=== PATIENT | female | born 1945 | race African-American/Black ===

== ENCOUNTER 2021-12-06 12:25 | Emergency (ER) | payer MEDICARE ==
[~2021-12-06] VITALS: Ht 162.6 cm; Wt 136.4 kg
[~2021-12-06 12:25] MED LIST: CITA40TA6 PO; GABA600T7 PO; HYDR12.58 PO; METH-572 PO; OXYC15TA3 PO; PRAV40TA2 PO
[2021-12-06 13:27] LABS: BASO # 0.1 x10^3/uL (0.0-0.2); BASO % 1 % (0-3); EOS # 0.2 x10^3/uL (0.0-0.7); EOS % 2 % (0-3); HEMATOCRIT 42.1 % (36.0-47.0); LYMPH # 2.6 x10^3/uL (1.0-4.8); LYMPH % 36 % (24-48); MEAN CORPUSCULAR HEMOGLOBIN 32 pg (25-35); MEAN CORPUSCULAR HGB CONC 33 g/dL (31-37); MEAN CORPUSCULAR VOLUME 95 fL (79-100); MONO # 0.8 x10^3/uL (0.0-1.1); MONO % 11 % (0-9); NEUT # 3.7 x10^3/uL (1.8-7.7); NEUT % 50 % (31-73); PLATELET COUNT 225 x10^3/uL (140-400); RED BLOOD COUNT 4.45 x10^6/uL (3.50-5.40); RED CELL DISTRIBUTION WIDTH 14.6 % (11.5-14.5); WHITE BLOOD COUNT 7.3 x10^3/uL (4.0-11.0)
[2021-12-06 13:30] LABS: BILIRUBIN,URINE NEGATIVE (NEG); CLARITY,URINE CLEAR; COLOR,URINE YELLOW; NITRITE,URINE NEGATIVE (NEG); PROTEIN,URINE NEGATIVE (NEG-TRACE); UROBILINOGEN,URINE 0.2 mg/dL (0.2 mg/dL)
[2021-12-06 13:40] LABS: BACTERIA,URINE FEW /HPF (0-FEW); RBC,URINE 0 /HPF (0-2); WBC,URINE OCC /HPF (0-4)
--- NOTE | 2021-12-06 13:41 | RAD ---
EXAM: Chest, single view. HISTORY: Hypertension. COMPARISON: None. FINDINGS: A frontal view of the chest is obtained. There is no infiltrate, pleural effusion or pneumo thorax. The heart is normal in size. IMPRESSION: No acute pulmonary finding. Electronically signed by: Kaila Garcia MD (12/06/2021 1:38 PM) [id number]
[2021-12-06 13:48] LABS: ANION GAP 10 (6-14); BLOOD UREA NITROGEN 16 mg/dL (7-20); BUN/CREATININE RATIO 15 (6-20); CALCIUM 9.6 mg/dL (8.5-10.1); CARBON DIOXIDE 30 mmol/L (21-32); CHLORIDE 103 mmol/L (98-107); CREATININE 1.1 mg/dL (0.6-1.0); GFR 58.7; GLUCOSE 119 mg/dL (70-99); POTASSIUM 3.3 mmol/L (3.5-5.1); SODIUM 143 mmol/L (136-145)
[2021-12-06 13:51] LABS: ALBUMIN 3.1 g/dL (3.4-5.0); ALBUMIN/GLOBULIN RATIO 0.7 (1.0-1.7); ALK PHOS 52 U/L (46-116); ALT (SGPT) 9 U/L (14-59); AST (SGOT) < 5 U/L (15-37); TOTAL BILIRUBIN 0.3 mg/dL (0.2-1.0); TOTAL PROTEIN 7.5 g/dL (6.4-8.2)
--- NOTE | 2021-12-06 13:55 | PHYS DOC ---
Past Medical History Past Medical History: Anxiety, High Cholesterol, Hypertension, Other Additional Past Medical Histor: neuropathy Past Surgical History: Cholecystectomy, Hysterectomy, Tubal ligation, Other Additional Past Surgical Histo: "Bursa" removed Smoking Status: Current Every Day Smoker Alcohol Use: None Drug Use: None General Adult EDM: Chief Complaint: HYPERTENSION HPI: HPI: Patient is a 76 year old female who presents with high blood pressure reading at home, "trembling face," headache and dizziness. Patient checked her blood pressure this morning and reports that her systolic blood pressure was 202. She is unsure what the diastolic was. She called her primary care provider who advised that she present to the emergency department. Recently, patient's entire household was quarantined because multiple people in the home tested positive for COVID-19. Patient consistently tested negatively, however had headache and dizziness during this time. She reports that the symptoms have not resolved. Patient denies focal weakness, paresthesias, facial droop, chest pain, palpitations, shortness of breath, cough. Review of Systems: Review of Systems: Constitutional: Denies fever, chills or generalized weakness Eyes: Denies change in visual acuity, visual field deficits or discharge HENT: Denies ear pain, nasal congestion or sore throat Respiratory: See HPI Cardiovascular: See HPI GI: Denies abdominal pain, nausea, vomiting, bloody stools or diarrhea : Denies dysuria or hematuria Musculoskeletal: Denies back pain or joint pain Integument: Denies rash or other skin lesion Neurologic: See HPI Heart Score: C/O Chest Pain: No Allergies: Allergies: Allergies Coded Allergies Type Severity Reaction Last Updated Verified Penicillins Allergy Intermediate 02/23/14 Yes Physical Exam: PE: Constitutional: Obese, well-groomed, no acute distress, non-toxic appearance. HENT: Normocephalic, atraumatic, bilateral external ears normal, nose normal. Eyes: PERRLA, EOMI, conjunctiva normal, no discharge. Neck: Normal range of motion, no stridor. Cardiovascular: Heart rate regular rhythm, no murmur. Lungs & Thorax: Bilateral breath sounds clear to auscultation. Skin: Warm, dry, no erythema, no rash. Extremities: No tenderness, no cyanosis, no clubbing, ROM intact, no pitting edema. Neurologic: Alert and oriented x4, no focal deficits noted. Current Patient Data: Labs: Laboratory Tests Test 12/06/21 12:50 12/06/21 12:55 White Blood Count 7.3 x10^3/uL (4.0-11.0) Red Blood Count 4.45 x10^6/uL (3.50-5.40) Hemoglobin 14.0 g/dL (12.0-15.5) Hematocrit 42.1 % (36.0-47.0) Mean Corpuscular Volume 95 fL (79-100) Mean Corpuscular Hemoglobin 32 pg (25-35) Mean Corpuscular Hemoglobin Concent 33 g/dL (31-37) Red Cell Distribution Width 14.6 % (11.5-14.5) Platelet Count 225 x10^3/uL (140-400) Neutrophils (%) (Auto) 50 % (31-73) Lymphocytes (%) (Auto) 36 % (24-48) Monocytes (%) (Auto) 11 % (0-9) Eosinophils (%) (Auto) 2 % (0-3) Basophils (%) (Auto) 1 % (0-3) Neutrophils # (Auto) 3.7 x10^3/uL (1.8-7.7) Lymphocytes # (Auto) 2.6 x10^3/uL (1.0-4.8) Monocytes # (Auto) 0.8 x10^3/uL (0.0-1.1) Eosinophils # (Auto) 0.2 x10^3/uL (0.0-0.7) Basophils # (Auto) 0.1 x10^3/uL (0.0-0.2) Sodium Level 143 mmol/L (136-145) Potassium Level 3.3 mmol/L (3.5-5.1) Chloride Level 103 mmol/L (98-107) Carbon Dioxide Level 30 mmol/L (21-32) Anion Gap 10 (6-14) Blood Urea Nitrogen 16 mg/dL (7-20) Creatinine 1.1 mg/dL (0.6-1.0) Estimated GFR (Cockcroft-Gault) 58.7 BUN/Creatinine Ratio 15 (6-20) Glucose Level 119 mg/dL (70-99) Calcium Level 9.6 mg/dL (8.5-10.1) Magnesium Level 2.2 mg/dL (1.8-2.4) Total Bilirubin 0.3 mg/dL (0.2-1.0) Aspartate Amino Transf (AST/SGOT) < 5 U/L (15-37) Alanine Aminotransferase (ALT/SGPT) 9 U/L (14-59) Alkaline Phosphatase 52 U/L (46-116) Troponin I High Sensitivity 5 ng/L (4-50) Total Protein 7.5 g/dL (6.4-8.2) Albumin 3.1 g/dL (3.4-5.0) Albumin/Globulin Ratio 0.7 (1.0-1.7) Urine Collection Type Unknown Urine Color Yellow Urine Clarity Clear Urine pH 6.0 (<5.0-8.0) Urine Specific [place] 1.015 (1.000-1.030) Urine Protein Negative mg/dL (NEG-TRACE) Urine Glucose (UA) Negative mg/dL (NEG) Urine Ketones (Stick) Negative mg/dL (NEG) Urine Blood Negative (NEG) Urine Nitrite Negative (NEG) Urine Bilirubin Negative (NEG) Urine Urobilinogen Dipstick 0.2 mg/dL (0.2 mg/dL) Urine Leukocyte Esterase Negative (NEG) Urine RBC 0 /HPF (0-2) Urine WBC Occ /HPF (0-4) Urine Squamous Epithelial Cells Mod /LPF Urine Bacteria Few /HPF (0-FEW) 12/06/21 12:50 Vital Signs: Vital Signs Date Time Temp Pulse Resp B/P (MAP) Pulse Ox O2 Delivery O2 Flow Rate FiO2 12/06/21 16:04 97.8 59 16 149/72 (97) 96 Room Air 97.8 12/06/21 14:54 59 19 134/66 (88) 96 Room Air 12/06/21 13:40 62 20 160/71 (100) 95 Room Air 12/06/21 12:30 97.8 72 18 152/66 (94) 98 Room Air 97.8 EKG: EKG: EKG Interpreted by Dr. Shanks at 1234: Regular rate and rhythm 76 bpm with no ectopic beats. QT 370 ms/QTc 420 ms. No STEMI. Radiology/Procedures: Radiology/Procedures: PROCEDURE: CT HEAD WO CONTRAST CT HEAD INDICATION: Dizziness, hypertension COMPARISON: None Available. Exposure: One or more of the following individualized dose reduction techniques were utilized for this examination: 1. Automated exposure control 2. Adjustment of the mA and/or kV according to patient size 3. Use of iterative reconstruction technique TECHNIQUE: 5 mm contiguous axial images were obtained from the skull base to the vertex in both bone and soft tissue algorithm. FINDINGS: No abnormal attenuation within the brain parenchyma. No evidence of acute intracranial hemorrhage. No extra-axial fluid collections. No mass effect or midline shift. Ventricular size is appropriate. Basal cisterns are patent. No fractures identified.Lee-white differentiation is preserved.Globes and orbits are within normal limits. Paranasal sinuses and mastoid air cells are clear. IMPRESSION: No acute intracranial findings. Electronically signed by: Leopoldo Galvan MD (12/06/2021 2:20 PM) [id number] PROCEDURE: CHEST AP ONLY EXAM: Chest, single view. HISTORY: Hypertension. COMPARISON: None. FINDINGS: A frontal view of the chest is obtained. There is no infiltrate, pleural effusion or pneumothorax. The heart is normal in size. IMPRESSION: No acute pulmonary finding. Electronically signed by: Kaila Garcia MD (12/06/2021 1:38 PM) [id number] Course & Med Decision Making: Course & Med Decision Making Pertinent Labs and Imaging studies reviewed. (See chart for details) Patient is a 76-year-old female who recently completed quarantine for Covid exposure in the home who presents with headache, dizziness and an elevated blood pressure reading this morning. Patient called her primary care doctor's office, advised she visited the ER. Work-up today will include labs, urinalysis, chest x-ray, CT head. Work-up today does not reveal any evidence of endorgan damage. Patient's headache is improved, as is her blood pressure. Patient is advised to follow with her PCP if her headaches become more frequent. All questions were answered and return precautions were provided. Patient and her family member at bedside understand and are agreeable to discharge plan. Dragon Disclaimer: Latisha Disclaimer: This electronic medical record was generated, in whole or in part, using a voice recognition dictation system. Departure Departure Impression: Primary Impression: Headache Qualified Codes: R51.9 - Headache, unspecified Additional Impression: Elevated systolic blood pressure reading with diagnosis of hypertension Disposition: HOME / SELF CARE / HOMELESS Condition: STABLE Referrals: NADEEM FREED MD (PCP) Patient Instructions: General Headache Without Cause, [id number], Managing Your High Blood Pressure, Potassium Content of Foods Additional Instructions: EMERGENCY DEPARTMENT GENERAL DISCHARGE INSTRUCTIONS Thank you for coming to [facility] Emergency Department (ED) today and trusting us with you care. We trust that you had a positive experience in our Emergency Department. If you wish to speak to the department management, you may call the director at . Your evaluation in the emergency department today after your elevated blood pressure reading at home did not reveal any acute abnormalities. Your potassium was slightly low, so please be sure to include potassium rich foods in your diet going forward. YOUR FOLLOW UP INSTRUCTIONS ARE FOLLOWS: 1. Follow up with your primary care doctor. If you do not have a primary doctor, please ask for a resource list of physicians or clinics that may be able to assist you with follow up care. 2. The emergency provider has interpreted your imaging studies, if any were ordered. The radiology central communications specialist also reviewed them. If there is a change in the findings, you will be notified in 48 hours when at all possible. 3. If a lab test or culture has been done, your results will be reviewed and you will be notified if you need a change in treatment. 4. Follow instructions verbalized to you and refer to the printouts if needed. ADDITIONAL INSTRUCTIONS AND INFORMATION: 1. Your care today has been supervised by a physician who is specially trained in emergency care. Many problems require more than one evaluation for a com plete diagnosis and treatment. We recommend that you schedule your follow up appointment as recommended to ensure complete treatment of you illness or injury. If you are unable to obtain follow up care and continue to have a problem, or if your condition worsens, we recommend that you return to the ED. 2. We are not able to safely determine your condition over the phone nor are we able to give sound medical advice over the phone. For these safety reasons, if you call for medical advice we will ask you to come to the ED for further evaluation. 3. If you have any questions regarding these discharge instructions please call the ED at . SAFETY INFORMATION: In the interest of safety, wellness, and injury prevention; we encourage you to wear your seat belt, if you smoke; quite smoking, and we encourage family to use a protective helmet for bicycling and other sporting events that present an increased risk for head injury. IF YOUR SYMPTOMS WORSEN OR NEW SYMPTOMS DEVELOP, OR YOU HAVE CONCERNS ABOUT YOUR CONDITION; OR IF YOUR CONDITION WORSENS WHILE YOU ARE WAITING FOR YOUR FOLLOW UP APPOINTMENT; EITHER CONTACT YOUR PRIMARY CARE DOCTOR, THE PHYSICIAN WHOSE NAME AND NUMBER YOU WERE GIVEN, OR RETURN TO THE ED IMMEDIATELY. YURI DE LEON Dec 06, 2021 13:55
--- NOTE | 2021-12-06 14:22 | RAD ---
CT HEAD INDICATION: Dizziness, hypertension COMPARISON: None Available. Exposure: One or more of the following individualized dose reduction techniques were utilized for thi s examination: 1. Automated exposure control 2. Adjustment of the mA and/or kV according to patient size 3. Use of iterative reconstruction technique TECHNIQUE: 5 mm contiguous axial images were obtained from the skull base to the vertex in both bone and soft tissue algorithm. FINDINGS: No abnormal attenuation within the brain parenchyma. No evidence of acute intracranial hemorrhage. No extra-axial fluid collections. No mass effect or midline shift. Ventricular size is appropriate. Basal cisterns are patent. No fractures identified.Lee-white differentiation is preserved.Globes and orbits are within normal l imits. Paranasal sinuses and mastoid air cells are clear. IMPRESSION: No acute intracranial findings. Electronically signed by: Leopoldo Galvan MD (12/06/2021 2:20 PM) [id number]
[2021-12-06] MEDS ORDERED: KETOROLAC 15 MG/ML VIAL. IVP ONE (15:00)
[2021-12-06 16:04] VITALS: BP 149/72
--- NOTE | 2021-12-07 02:27 | EKG ---
[facility] [address] [place] [address] Test Date: 2021-12-06 Test Time: 12:31:59 Pat Name: TRACY ALMANZA Department: Room: Gender: F Server Developer: : [id number] Requested By: YURI DE LEON Order Number: [id number] Reading MD: Kulwant Byrd MD Measurements Intervals [place] Rate: 76 P: 90 DC: 168 QRS: 41 QRSD: 82 T: 52 QT: 370 QTc: 420 Interpretive Statements SINUS RHYTHM Electronically Signed On 12-09-2021 8:28:58 EXTENSION COURSE COUNSELOR by Kulwant Byrd MD
== END 2021-12-06 16:05 | disposition home or self-care (01) ==
LOC: ER 12:25
DX: R51.9 Headache, unspecified (principal); I10 Essential (primary) hypertension; E78.00 Pure hypercholesterolemia, unspecified; F17.200 Nicotine dependence, unspecified, uncomplicated; Z88.0 Allergy status to penicillin
CPT/HCPCS: 36415; 70450; 71045; 80053; 81001; 83735; 84484; 85025; 93005; 96374; 99284; J1885